=== PATIENT | male | born 1970 | race Caucasian/White ===

== ENCOUNTER 2017-08-01 08:59 | Emergency (ER) | payer BC ==
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
--- NOTE | 2017-08-01 10:59 | RAD ---
INDICATION: LEFT wrist pain following injury 2 days ago. COMPARISON: No relevant prior exams available on the [facility] [place] [facility] for comparison. TECHNIQUE: AP, lateral, and oblique views LEFT wrist. REPORT: Normal articular alignment. No cortical disruption or suspicious trabecular irregularity to suggest fracture. No significant arthropathic change. Unremarkable soft tissue contours. IMPRESSION: Negative exam. If there is high index of suspicion for an occult scaphoid fracture repeat exam in 7 - 10 days would be suggested.
--- NOTE | 2017-08-01 11:05 | RAD ---
Indication: RIGHT knee pain and edema following injury 2 days ago. Abrasion anteriorly. Limited range of motion. Comparison: None. Technique: RIGHT knee: AP, tunnel, lateral, sunrise views. REPORT AND IMPRESSION: Negative for joint effusion, fracture, or malalignment. Preserved joint spaces. Mild anterior subcutaneous edema.
[2017-08-01 11:15] VITALS: BP 136/70
== END 2017-08-01 11:18 | disposition home or self-care (01) ==
LOC: UCEAST 08:59
DX: S80.01XA Contusion of right knee, initial encounter (principal); S60.212A Contusion of left wrist, initial encounter; S80.211A Abrasion, right knee, initial encounter; S60.811A Abrasion of right wrist, initial encounter; S60.812A Abrasion of left wrist, initial encounter; S50.312A Abrasion of left elbow, initial encounter; V19.9XXA Pedal cyclist (driver) (passenger) injured in unspecified traffic accident, initial encounter; Y93.55 Activity, bike riding; Y92.9 Unspecified place or not applicable; J45.909 Unspecified asthma, uncomplicated; Z88.0 Allergy status to penicillin; Z88.2 Allergy status to sulfonamides; Z87.891 Personal history of nicotine dependence
CPT/HCPCS: 99211; G0463

== ENCOUNTER 2018-10-29 15:29 | Emergency (ER) | payer BC ==
[2018-10-29 15:35] VITALS: BP 124/74
--- NOTE | 2018-10-29 16:31 | UC ---
Upper Extremity HPI - HPI Summary HPI Summary: Pt slipped and fell today onto outstretched R hand and injured wrist. painful since fall, hurts to move - History of Current Complaint Chief Complaint: UCUpperExtremity Stated Complaint: R WRIST INJURY Time Seen by Provider: 10/29/18 15:35 Pain Intensity: 9 - Allergies/Home Medications Allergies/Adverse Reactions: Allergies Allergy/AdvReac Type Severity Reaction Status Date / Time Penicillins Allergy Rash Verified 10/29/18 15:36 Sulfa (Sulfonamide Allergy Hives Verified 10/29/18 15:36 Antibiotics) PMH/Surg Hx/FS Hx/Imm Hx Previously Healthy: Yes - Surgical History Surgical History: Yes Surgery Procedure, Year, and Place: HERNIA. CYST REMOVED FROM NECK - Family History Known Family History: Positive: Hypertension - Social History Occupation: Employed Full-time - teacher Lives: With Family Alcohol Use: Weekly Substance Use Type: None Smoking Status (MU): Former Smoker Review of Systems All Other Systems Reviewed And Are Negative: Yes Constitutional: Positive: Negative Skin: Positive: Negative Respiratory: Positive: Negative Cardiovascular: Positive: Negative Musculoskeletal: Positive: Other: - R wrist pain Neurological: Positive: Negative Psychological: Positive: Negative Is Patient Immunocompromised?: No Physical Exam Triage Information Reviewed: Yes Appearance: Well-Appearing, No Pain Distress, Well-Nourished Vital Signs: Initial Vital Signs Temp 99.3 F 10/29/18 15:32 Pulse 80 10/29/18 15:32 Resp 18 10/29/18 15:32 BP 124/74 10/29/18 15:32 Pulse Ox 100 10/29/18 15:32 Vital Signs Reviewed: Yes Respiratory Exam: Normal Cardiovascular Exam: Normal Musculoskeletal: Positive: ROM Limited @ - R wrist due to pain Neurological Exam: Normal Psychological Exam: Normal Skin Exam: Normal Diagnostics - Radiology No standard instances Radiology Interpretation Completed By: Radiologist - fx R carpal bone Upper Extremity Course/Dx - Differential Dx/Diagnosis Differential Diagnosis/HQI/PQRI: Contusion, Fracture (Closed) Provider Diagnosis: Fracture, carpal Discharge - Sign-Out/Discharge Documenting (check all that apply): Patient Departure All imaging exams completed and their final reports reviewed: Yes - Discharge Plan Condition: Good Disposition: HOME Patient Education Materials: Wrist Fracture in Adults (ED) Referrals: Abhishek Gold MD [Primary Care Provider] - Petros Shepard MD [Medical Doctor] - 1 Day (for further evaluation) Additional Instructions: ice and elevate wrist Ibuprofen over the counter for pain as directed wear splint until seen by ortho doctor - Billing Disposition and Condition Condition: GOOD Disposition: Home
== END 2018-10-29 16:49 | disposition home or self-care (01) ==
LOC: UCEAST 15:29
DX: S62.101A Fracture of unspecified carpal bone, right wrist, initial encounter for closed fracture (principal); W01.0XXA Fall on same level from slipping, tripping and stumbling without subsequent striking against object, initial encounter; Y92.9 Unspecified place or not applicable; Z88.0 Allergy status to penicillin; Z88.2 Allergy status to sulfonamides; Z87.891 Personal history of nicotine dependence
CPT/HCPCS: 99212; G0463